=== PATIENT | female | born 1950 | race Caucasian/White ===

== ENCOUNTER 2017-04-26 07:54 | Day surgery (SDC) | payer BC, MEDICARE ==
[~2017-04-26] VITALS: Ht 154.9 cm; Wt 67.8 kg
[~2017-04-26 07:54] MED LIST: Advair Hfa 230-12 GM; MELO7.5; TRAM50
[2017-04-26] MEDS ORDERED: ALBU90OI61 (08:27)
== END 2017-04-26 10:02 | disposition home or self-care (01) ==
LOC: ORSCSDS 07:54
PROVIDERS: Surgery
PROC: 0DBM8ZX Excision of Descending Colon, Via Natural or Artificial Opening Endoscopic, Diagnostic (ICD-10-PCS; principal; 2017-04-26 09:00)
PROC: 0DBP8ZX Excision of Rectum, Via Natural or Artificial Opening Endoscopic, Diagnostic (ICD-10-PCS; principal; 2017-04-26 09:00)
DX: Z12.11 Encounter for screening for malignant neoplasm of colon (principal); D12.4 Benign neoplasm of descending colon; D12.8 Benign neoplasm of rectum; Z86.010 Personal history of colon polyps; I10 Essential (primary) hypertension; E78.5 Hyperlipidemia, unspecified; J45.909 Unspecified asthma, uncomplicated; Z79.899 Other long term (current) drug therapy; Z87.891 Personal history of nicotine dependence
CPT/HCPCS: 88305; J7120

== ENCOUNTER 2023-11-02 10:28 | Day surgery (SDC) | payer OTHER ==
[~2023-11-02] VITALS: Ht 154.9 cm; Wt 60.1 kg
[~2023-11-02 10:28] MED LIST changes: +ALBU90OI61; +Balanced Salt Epinephrine Irrigation Solution 500 mL IR SCH; +Lidocaine HCl/Pf 1% 5 ML VIAL XX SCH; +Moxifloxacin HCL 0.5 MG/0.1 ML 0.4MLSYR LEFTEYE SCH; +NS 500 ML IV ONE; +PHENYLEPHRINE\\TROPICAMIDE\\TETRACAINE OPHTHALMIC DILATING SOLN LEFTEYE PRN; +Povidone-Iodine 450 DROP/30 ML Solution LEFTEYE SCH; +Triamcinolone Inj Susp 40 MG / ML 1ML Vial ONE
[2023-11-02] MEDS ORDERED: ENTRESTO 24 MG1 EAC3 PO (10:48)
[2023-11-02] MEDS ORDERED: EUTHYROX75 MC1 PO (10:48)
[2023-11-02] MEDS ORDERED: ADVAIR HFA 230-28 GM IH (10:52)
[2023-11-02] MEDS ORDERED: [UNRECOGNIZED DRUG - MIXTURE] (10:53)
--- NOTE | 2023-11-02 10:58 | NUR ---
11/02/23 1058 Lizzette Alvarenga AT [address] AT 1045
[2023-11-02] MEDS ORDERED: NS 500 ML IV ONE (10:59)
[2023-11-02] MEDS ORDERED: Tetracaine HCl 0.5% Opth Soln 15 ml LEFTEYE ONE (11:32)
[2023-11-02] MEDS ORDERED: Midazolam HCl 1MG / ML 2ML Vial ONE (11:33)
[2023-11-02] MEDS ORDERED: Erythromycin 0.5% Opth Oint 1 gm ONE (11:40)
[2023-11-02 12:11] VITALS: BP 120/62
== END 2023-11-02 12:15 | disposition home or self-care (01) ==
LOC: ORSCSDS 10:28
PROVIDERS: Student in an Organized Health Care Education/Training Program
PROC: 08RK3JZ Replacement of Left Lens with Synthetic Substitute, Percutaneous Approach (ICD-10-PCS; principal; 2023-11-02 11:30)
DX: H25.813 Combined forms of age-related cataract, bilateral (principal); I10 Essential (primary) hypertension; G47.33 Obstructive sleep apnea (adult) (pediatric); Z79.899 Other long term (current) drug therapy
CPT/HCPCS: A9270; J2250; J3301; J7040; V2632

== ENCOUNTER 2023-11-08 10:19 | Day surgery (SDC) | payer OTHER ==
[~2023-11-08] VITALS: Ht 154.9 cm; Wt 60.4 kg
[~2023-11-08 10:19] MED LIST changes: +ADVAIR HFA 230-28 GM IH; +ENTRESTO 24 MG1 EAC3 PO; +EUTHYROX75 MC1 PO; -Moxifloxacin HCL 0.5 MG/0.1 ML 0.4MLSYR LEFTEYE SCH; +Moxifloxacin HCL 0.5 MG/0.1 ML 0.4MLSYR RIGHTEYE SCH; -PHENYLEPHRINE\\TROPICAMIDE\\TETRACAINE OPHTHALMIC DILATING SOLN LEFTEYE PRN; +PHENYLEPHRINE\\TROPICAMIDE\\TETRACAINE OPHTHALMIC DILATING SOLN RIGHTEYE PRN; -Povidone-Iodine 450 DROP/30 ML Solution LEFTEYE SCH; +Povidone-Iodine 450 DROP/30 ML Solution RIGHTEYE SCH; -Triamcinolone Inj Susp 40 MG / ML 1ML Vial ONE; +[UNRECOGNIZED DRUG - MIXTURE]
[2023-11-08] MEDS ORDERED: FORMOTEROL20 MCG/2 M (10:41)
[2023-11-08] MEDS ORDERED: NS 1,000 ML IV ONE (10:56)
[2023-11-08] MEDS ORDERED: Midazolam HCl 1MG / ML 2ML Vial ONE (11:25)
[2023-11-08 13:20] VITALS: BP 128/65
== END 2023-11-08 12:09 | disposition home or self-care (01) ==
LOC: ORSCSDS 10:19
PROVIDERS: Student in an Organized Health Care Education/Training Program
PROC: 08RJ3JZ Replacement of Right Lens with Synthetic Substitute, Percutaneous Approach (ICD-10-PCS; principal; 2023-11-08 11:30)
DX: H25.811 Combined forms of age-related cataract, right eye (principal); Z96.1 Presence of intraocular lens; I10 Essential (primary) hypertension; J44.9 Chronic obstructive pulmonary disease, unspecified; Z99.81 Dependence on supplemental oxygen; Z87.891 Personal history of nicotine dependence; G47.33 Obstructive sleep apnea (adult) (pediatric); E03.9 Hypothyroidism, unspecified; R06.02 Shortness of breath; Z79.899 Other long term (current) drug therapy
CPT/HCPCS: J2250; J7040; V2632